=== PATIENT | male | born 1965 | race Caucasian/White ===

== ENCOUNTER → 2018-09-26 | Outpatient (CLI) | payer OTHER | LOC: CIMAGING 10:12 | PROVIDERS: ATTEND Radiology Diagnostic Radiology | DX: T15.90XA Foreign body on external eye, part unspecified, unspecified eye, initial encounter (principal) | CPT/HCPCS: 70200-PO ==

== ENCOUNTER 2019-03-03 05:45 | Day surgery (SDC) | payer OTHER | END 2019-03-03 12:45 | disposition home or self-care (01) | LOC: FSGY 05:45 ==